=== PATIENT | female | born 1975 | race American Indian/Alaskan Native ===

== ENCOUNTER 2018-05-28 07:13 | Emergency (ER) | payer BC ==
[2018-05-28 07:25] VITALS: BMI 28.1
--- NOTE | 2018-05-28 07:39 | ED PDOC ---
Arrival/HPI <KirbyTerell - Last Filed: 05/28/18 08:16> - General Historian: Patient - History of Present Illness Narrative History of Present Illness (Text): 05/28/18 07:33 42 y o female with no remarkable past medical hx presents to the ED c/o UTI symptoms. States she has been having burning with urination and dysuria x 3 days. Pt states that she went to the pharmacy 2 days ago and started taking Azo with lots of fluids, which did not help relieve her symptoms. Also c/o suprapubic pain and R-sided low back pain. States her urine is dark but denies any hematuria. Denies fever, chills. Tolerating PO diet without concerns. Denies headache, dizziness, chest pain, sob, n/v/d/c, or other symptoms. Denies hx of recurrent UTIs. 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 Marnie Zayas Time/Duration: Other (3 days) Symptom Onset: Gradual Symptom Course: Worsening Quality: Burning Severity Level: 7 Activities at Onset: Rest Context: Home <KerwinCharlie - Last Filed: 05/28/18 08:53> - General Chief Complaint: Female Genitourinary Time Seen by Provider: 05/28/18 07:33 Past Medical History - Provider Review Nursing Documentation Reviewed: Yes - Travel History Have you recently traveled outside [place] w/in the past 3 mons?: No - Cardiac Hx Cardiac Disorders: No - Pulmonary Hx Respiratory Disorders: No - Neurological Hx Neurological Disorder: No - HEENT Hx HEENT Disorder: No - Renal Hx Renal Disorder: No - Endocrine/Metabolic Hx Endocrine Disorders: No - Hematological/Oncological Hx Blood Disorders: No - Integumentary Hx Dermatological Disorder: No - Musculoskeletal/Rheumatological Hx Musculoskeletal Disorders: Yes - Gastrointestinal Hx Gastrointestinal Disorders: No - Genitourinary/Gynecological Hx Genitourinary Disorders: Yes Hx Urinary Tract Infection: Yes - Psychiatric Hx Psychophysiologic Disorder: No Hx Substance Use: No - Surgical History Hx Orthopedic Surgery: Yes Other/Comment: Right breast benign tumor removed - Suicidal Assessment Feels Threatened In Home Enviroment: No <Charlie Suresh - Last Filed: 05/28/18 08:53> Family/Social History - Physician Review Nursing Documentation Reviewed: Yes Family/Social History: No Known Family HX Smoking Status: Never Smoked Hx Alcohol Use: Yes Frequency of alcohol use: Socially Hx Substance Use: No <Charlie Suresh - Last Filed: 05/28/18 08:53> Allergies/Home Meds <Terell Orr - Last Filed: 05/28/18 08:16> <Charlie Suresh - Last Filed: 05/28/18 08:53> Allergies/Adverse Reactions: Allergies No Known Allergies Allergy (Unverified 08/16/14 16:51) Review of Systems - Review of Systems Constitutional: absent: Fatigue, Fevers, Night Sweats Respiratory: absent: SOB, Cough Cardiovascular: absent: Chest Pain, Palpitations, RAMIREZ Genitourinary Female: Dysuria, Other (Suprapubic pain). absent: Frequency, Hematuria Musculoskeletal: Back Pain. absent: Myalgias Skin: absent: Rash Neurological: absent: Headache, Dizziness <Charlie Suresh - Last Filed: 05/28/18 08:53> Physical Exam Vital Signs Temp Pulse Resp BP Pulse Ox 05/28/18 07:34 98.3 F 82 19 118/74 99 <Terell Orr - Last Filed: 05/28/18 08:16> Temperature: Afebrile Blood Pressure: Normal Pulse: Regular Respiratory Rate: Normal Appearance: Positive for: Well-Appearing, Non-Toxic, Comfortable Mental Status: Positive for: Alert and Oriented X 3 - Systems Exam Head: Present: Atraumatic, Normocephalic Pupils: Present: PERRL Extroacular Muscles: Present: EOMI Conjunctiva: Present: Normal Mouth: Present: Moist Mucous Membranes Respiratory/Chest: Present: Clear to Auscultation, Good Air Exchange. No: Respiratory Distress, Accessory Muscle Use, Wheezes, Rales, Rhonchi Cardiovascular: Present: Regular Rate and Rhythm, Normal S1, S2. No: Murmurs, Rub, Gallop Abdomen: Present: Tenderness (Suprapubic tenderness), Normal Bowel Sounds. No: Distention, Rebound, Guarding, Mass/Organomegaly Back: Present: Normal Inspection, CVA Tenderness (on R side) Upper Extremity: Present: Normal Inspection, Normal ROM, NORMAL PULSES, Neurovascularly Intact, Capillary Refill < 2s. No: Cyanosis, Edema, Temperature Abnormalties Lower Extremity: Present: Normal Inspection, NORMAL PULSES, Neurovascularly Intact, Capillary Refill < 2 s. No: Edema, CALF TENDERNESS, Temperature Abnormalties Neurological: Present: GCS=15, CN II-XII Intact, Speech Normal, Motor Func Grossly Intact, Gait Normal Skin: Present: Warm, Dry, Normal Color. No: Rashes Psychiatric: Present: Alert, Oriented x 3, Normal Insight, Normal Concentration <Charlie Suresh - Last Filed: 05/28/18 08:53> Medical Decision Making ED Course and Treatment: 05/28/18 08:01 Seen and examined with the resident. Our history and physical exam reveals a woman complaining of a three-day history of dysuria frequency and urgency. No hematuria. There is suprapubic discomfort. No nausea or vomiting. She has bilateral low back pain. Does not appear ill. There is mild CVA tenderness bilaterally. Her abdomen is soft and nontender. <Terell Orr - Last Filed: 05/28/18 08:16> ED Course and Treatment: 05/28/18 07:49 42 y o female with no remarkable past medical hx presents with dysuria and burning with urination x 3 days. Plan: -U/a, urine C+S, urine test -Cont to monitor 05/28/18 08:47 U/a positive for leukocyte esterase, nitrates, and mod blood. Plan to discharge pt on Bactrim DS and Phenazopyridine. Instructed pt to avoid alcohol use while taking antibiotics. Instructed to follow-up with her PMD in 2-3 days. Instructed to follow-up sooner if symptoms do not improve while on antibiotics. All questions and concerns addressed with pt and she is agreeable to plan. - Lab Interpretations I have reviewed the lab results: Yes <Charlie Suresh - Last Filed: 05/28/18 08:53> Disposition/Present on Arrival - Present on Arrival Any Indicators Present on Arrival: No History of DVT/PE: No History of Uncontrolled Diabetes: No Urinary Catheter: No History of Decub. Ulcer: No - Disposition Have Diagnosis and Disposition been Completed?: Yes Disposition Time: 08:17 Patient Plan: Discharge <Terell Orr - Last Filed: 05/28/18 08:16> - Present on Arrival History of DVT/PE: No History of Uncontrolled Diabetes: No Urinary Catheter: No History of Decub. Ulcer: No History Surgical Site Infection Following: None <Charlie Suresh - Last Filed: 05/28/18 08:53> - Disposition Diagnosis: Urinary tract infection Disposition: HOME/ ROUTINE Condition: STABLE Discharge Instructions (ExitCare): Urinary Tract Infections in Adults Additional Instructions: Waiting for urine culture results. We will call you if antibiotics need to be changed. Follow-up with PMD. Follow up in ER as needed. Prescriptions: Sulfamethoxazole/Trimethoprim [Bactrim DS 800 mg-160 mg] 1 tab PO BID #6 tab Phenazopyridine HCl [Pyridium] 200 mg PO Q8 #9 tablet Referrals: Marnie Zayas MD [Family Provider] - Follow up with primary Forms: [facility] (Tongan)
[2018-05-28 08:11] LABS: URINE BILIRUBIN NEGATIVE (NEGATIVE); URINE BLOOD MODERATE (NEGATIVE); URINE GLUCOSE (UA) NEGATIVE (NEGATIVE); URINE LEUKOCYTE ESTERASE LARGE Leu/uL (NEGATIVE); URINE PROTEIN 30 mg/dL (<30 mg/dL); URINE UROBILINOGEN 0.2 E.U./dL (<1 E.U./dL)
[2018-05-28 08:15] LABS: HCG,QUALITATIVE URINE NEGATIVE (NEGATIVE)
[2018-05-28 08:16] LABS: URINE APPEARANCE CLOUDY (CLEAR); URINE COLOR YELLOW (YELLOW)
[2018-05-28 08:20] LABS: URINE RBC 25 - 30 /hpf (0-2)
[2018-05-28 08:21] LABS: URINE WBC TNTC /hpf (0-6)
[2018-05-28 08:52] VITALS: BP 125/63; PULSE 75; RESP 19; TEMP 98; O2SAT 100
== END 2018-05-28 08:52 | disposition home or self-care (01) ==
LOC: ED 07:13
DX: N39.0 Urinary tract infection, site not specified (principal)